=== PATIENT | female | born 1995 | race Caucasian/White ===

== ENCOUNTER 2017-02-14 00:15 | Emergency (ER) | payer OTHER, BC ==
[2017-02-14] MEDS ORDERED: Ondansetron 4 MG/2 ML SDV IVPUSH ONE (00:24)
[2017-02-14] MEDS ORDERED: Pantoprazole 40 MG Vial IVPUSH ONE (00:24)
[2017-02-14] MEDS ORDERED: Sodium Chloride 0.9% 1,000 ML IV ONE ×2 (00:24→02:21)
[2017-02-14] MEDS ORDERED: Metoclopramide 10 MG/2 ML SDV IVPUSH ONE (00:34)
--- NOTE | 2017-02-14 02:57 | EDM.PDOC ---
ED HPI GENERAL MEDICAL PROBLEM - General Chief Complaint: General Stated Complaint: VOMITTING Time Seen by Provider: 02/14/17 00:20 Source of Information: Reports: Patient, Family History Limitations: Reports: No Limitations - History of Present Illness INITIAL COMMENTS - FREE TEXT/NARRATIVE: 21 years old w f came to the ed due to sudden onset of N/V then Diarrhea. Pt denied foot poisoning. She vomitted 20 times or more. took Zofran BUSINESS OFFICE REPRESENTATIVE without help, denied . She denied any other acute medical issues. BP 126/67 pulse 112 Onset: Today Onset Date: 02/13/17 Onset Time: 16:00 Duration: Hour(s):, Intermittent Location: Reports: Abdomen (epigastric) Quality: Reports: Burning Severity: Moderate Improves with: Reports: None Worsens with: Reports: None Associated Symptoms: Reports: Nausea/Vomiting Treatments BUSINESS OFFICE REPRESENTATIVE: Reports: Other Medication(s) (Zofran) - Related Data Allergies Allergy/AdvReac Type Severity Reaction Status Date / Time Jermaine. Allergy Hives Uncoded 02/14/17 00:46 Home Meds: Home Meds Famotidine [Pepcid] 40 mg PO DAILY #10 tablet 02/14/17 [Rx] Past Medical History - Past Health History Medical/Surgical History: Denies Medical/Surgical History Social & Family History - Tobacco Use Smoking Status *Q: Never Smoker Second Hand Smoke Exposure: No - Caffeine Use Caffeine Use: Reports: Coffee Caffeine Use Comment: Mountain Dew - Recreational Drug Use Recreational Drug Use: No ED ROS GENERAL - Review of Systems Review Of Systems: See Below Constitutional: Reports: No Symptoms HEENT: Reports: No Symptoms Respiratory: Reports: No Symptoms Cardiovascular: Reports: No Symptoms Endocrine: Reports: No Symptoms GI/Abdominal: Reports: Diarrhea, Nausea, Vomiting : Reports: No Symptoms Musculoskeletal: Reports: No Symptoms Skin: Reports: No Symptoms Neurological: Reports: No Symptoms Psychiatric: Reports: No Symptoms Hematologic/Lymphatic: Reports: No Symptoms Immunologic: Reports: No Symptoms ED EXAM, GENERAL - Physical Exam Exam: See Below Exam Limited By: No Limitations General Appearance: Alert, WD/WN, Moderate Distress, Thin Eye Exam: Bilateral Eye: Normal Inspection Ears: Normal External Exam Ear Exam: Bilateral Ear: Auricle Normal Nose: Normal Inspection, Normal Mucosa Throat/Mouth: Normal Inspection, Normal Lips, Normal Teeth Head: Atraumatic, Normocephalic Neck: Normal Inspection, Supple, Non-Tender Respiratory/Chest: No Respiratory Distress, Lungs Clear Cardiovascular: Normal Peripheral Pulses, Regular Rate, Rhythm Peripheral Pulses: 1+: Femoral (L), Femoral (R) GI/Abdominal: Normal Bowel Sounds, Tender (epigastric area ) (Female) Exam: Deferred Rectal (Female) Exam: Deferred Back Exam: Normal Inspection Extremities: Normal Inspection Neurological: Alert, Oriented, CN II-XII Intact, Normal Cognition, Normal Gait Psychiatric: Normal Affect, Normal Mood Skin Exam: Warm, Dry, Intact, Normal Color, No Rash Lymphatic: No Adenopathy Course - Vital Signs Text/Narrative:: 21 years old w f came to the ed due to sudden onset of N/V then Diarrhea. Pt denied foot poisoning. She vomited 20 times or more. took Zofran BUSINESS OFFICE REPRESENTATIVE without help, denied . C/O mild bilat back pain. She denied any other acute medical issues. BP 126/67 pulse 112 PE: N/V epigastic and back pain Labs: WBC 15k BUN 16 Cr 0.6 UA SG 1.020 UPT was neg. Impression: Gastroenteritis, Dehydration, back pain Tx: NS,Reglan, Protonix Reexam: Pt felt 90% better, back pain subsided spontaneously Plan: D/C with instructions Last Recorded V/S: Last Vital Signs Temp 37.0 C 02/14/17 03:35 Pulse 68 02/14/17 03:35 Resp 20 02/14/17 03:35 BP 124/62 02/14/17 03:35 Pulse Ox 98 02/14/17 03:35 - Orders/Labs/Meds Labs: Laboratory Tests 02/14/17 02/14/17 02/14/17 Range/Units 00:37 00:37 02:20 WBC 15.4 H (4.5-12.0) X10-3/uL RBC 4.00 (3.23-5.20) x10(6)uL Hgb 12.5 (11.5-15.5) g/dL Hct 36.6 (30.0-51.3) % MCV 91.5 (80-96) fL MCH 31.2 (27.7-33.6) pg MCHC 34.1 (32.2-35.4) g/dL RDW 12.2 (11.5-15.5) % Plt Count 252 (125-369) X10(3)uL MPV 8.8 (7.4-10.4) fL Add Manual Diff Yes Neutrophils % (Manual) 79 (46-82) % Band Neutrophils % 4 (0-6) % Lymphocytes % (Manual) 13 (13-37) % Atypical Lymphs % (0-0) % Monocytes % (Manual) 4 (4-12) % Sodium 135 (135-145) mmol/L Potassium 3.6 (3.5-5.3) mmol/L Chloride 105 (100-110) mmol/L Carbon Dioxide 22 L (23-29) mmol/L BUN 16 (5-20) mg/dL Creatinine 0.6 (0.6-1.3) mg/dL Est Cr Clr Drug Dosing 120.08 mL/min Estimated GFR (MDRD) > 60 (>60) BUN/Creatinine Ratio 26.7 H (9-20) Glucose 115 (80-116) mg/dL Calcium 8.9 (8.6-10.2) mg/dL Total Bilirubin 1.2 (0.1-1.3) mg/dL Direct Bilirubin 0.2 (0.1-0.2) mg/dL AST 19 (5-27) IU/L ALT 13 L (14-26) IU/L Alkaline Phosphatase 36 L (56-112) IU/L Total Protein 7.2 (6.0-8.0) g/dL Albumin 4.4 (3.5-5.2) g/dL Amylase 72 (28-100) U/L Urine Color (YELLOW) Urine Appearance (CLEAR) Urine pH (5.0-6.5) Ur Specific Steele (1.010-1.025) Urine Protein (NEGATIVE) mg/dL Urine Glucose (UA) (NEGATIVE) mg/dL Urine Ketones (NEGATIVE) mg/dL Urine Occult Blood (NEGATIVE) Urine Nitrite (NEGATIVE) Urine Bilirubin (NEGATIVE) Urine Urobilinogen (NEGATIVE) mg/dL Ur Leukocyte Esterase (NEGATIVE) Urine RBC (0) Urine WBC (0) Ur Squamous Epith Cells (NS,R,O) Urine Bacteria (NS) Urine Mucus (NS) Urine HCG, Qual (NEGATIVE) 02/14/17 02/14/17 Range/Units 02:20 02:20 WBC (4.5-12.0) X10-3/uL RBC (3.23-5.20) x10(6)uL Hgb (11.5-15.5) g/dL Hct (30.0-51.3) % MCV (80-96) fL MCH (27.7-33.6) pg MCHC (32.2-35.4) g/dL RDW (11.5-15.5) % Plt Count (125-369) X10(3)uL MPV (7.4-10.4) fL Add Manual Diff Neutrophils % (Manual) (46-82) % Band Neutrophils % (0-6) % Lymphocytes % (Manual) (13-37) % Atypical Lymphs % (0-0) % Monocytes % (Manual) (4-12) % Sodium (135-145) mmol/L Potassium (3.5-5.3) mmol/L Chloride (100-110) mmol/L Carbon Dioxide (23-29) mmol/L BUN (5-20) mg/dL Creatinine (0.6-1.3) mg/dL Est Cr Clr Drug Dosing mL/min Estimated GFR (MDRD) (>60) BUN/Creatinine Ratio (9-20) Glucose (80-116) mg/dL Calcium (8.6-10.2) mg/dL Total Bilirubin (0.1-1.3) mg/dL Direct Bilirubin (0.1-0.2) mg/dL AST (5-27) IU/L ALT (14-26) IU/L Alkaline Phosphatase (56-112) IU/L Total Protein (6.0-8.0) g/dL Albumin (3.5-5.2) g/dL Amylase (28-100) U/L Urine Color Yellow (YELLOW) Urine Appearance Slightly cloudy (CLEAR) Urine pH 6.0 (5.0-6.5) Ur Specific [place] 1.020 (1.010-1.025) Urine Protein Negative (NEGATIVE) mg/dL Urine Glucose (UA) Normal (NEGATIVE) mg/dL Urine Ketones 15 H (NEGATIVE) mg/dL Urine Occult Blood Negative (NEGATIVE) Urine Nitrite Negative (NEGATIVE) Urine Bilirubin Moderate H (NEGATIVE) Urine Urobilinogen 1 H (NEGATIVE) mg/dL Ur Leukocyte Esterase Negative (NEGATIVE) Urine RBC 0-5 (0) Urine WBC 0-5 (0) Ur Squamous Epith Cells Few H (NS,R,O) Urine Bacteria Few H (NS) Urine Mucus Few H (NS) Urine HCG, Qual Negative (NEGATIVE) Meds: Medications Discontinued Medications Generic Name Dose Route Start Last Admin Trade Name Shauna PRN Reason Stop Dose Admin Sodium Chloride 1,000 mls @ 999 mls/hr 02/14/17 00:24 02/14/17 01:19 Normal Saline IV 02/14/17 01:24 999 mls/hr .BOLUS ONE Administration Sodium Chloride 1,000 mls @ 999 mls/hr 02/14/17 02:21 02/14/17 02:30 Normal Saline IV 02/14/17 03:21 999 mls/hr .BOLUS ONE Administration Metoclopramide HCl 10 mg 02/14/17 00:34 02/14/17 01:19 Reglan IVPUSH 02/14/17 00:35 10 mg ONETIME ONE Administration Ondansetron HCl 8 mg 02/14/17 00:24 Zofran IVPUSH 02/14/17 00:25 ONETIME ONE Pantoprazole Sodium 40 mg 02/14/17 00:24 02/14/17 01:19 Protonix Iv IVPUSH 02/14/17 00:25 40 mg ONETIME ONE Administration Departure - Departure Time of Disposition: 02:51 Disposition: Home, Self-Care 01 Condition: good Clinical Impression: Dehydration, Gastroenteritis Gastritis Qualifiers: Gastritis type: unspecified gastritis Chronicity: acute Gastritis bleeding: without bleeding Qualified Code(s): K29.00 - Acute gastritis without bleeding - Discharge Information Prescriptions: Famotidine [Pepcid] 40 mg PO DAILY #10 tablet Referrals: PCP,Not In Area [Primary Care Provider] - Forms: ED Department Discharge Additional Instructions: Please take pepcid as recommended, please take zofran for nausea, please eat potassium containing food, please f/u, come back to the ed if your symptoms get acutely worse. Advance diet as tolerated.
[2017-02-14 03:36] VITALS: BP 124/62
== END 2017-02-14 03:36 | disposition home or self-care (01) ==
LOC: FB.ED 00:15
DX: E86.0 Dehydration (principal); K29.00 Acute gastritis without bleeding; K52.9 Noninfective gastroenteritis and colitis, unspecified; Z79.899 Other long term (current) drug therapy
CPT/HCPCS: 36415; 80048; 80076; 81001; 81025; 82150; 85025; 96361; 96374; 96375; 99284; C9113; J2765; J7040

== ENCOUNTER 2019-04-08 15:18 | Emergency (ER) | payer BC ==
--- NOTE | 2019-04-08 15:22 | EDM.PDOC ---
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 Last NMP (?), No Trauma. No Blood in her urine, n H/O Kidney stone. no prev abdominal surgeries. pain radiates to her R flank. No N/V/D, No CP. NO SOB. No other acute med issues. BP 107/70 RR 18 Pulse ox 100% on RA Pulse 82 Temp 36.6 Onset Date: 04/08/19 Onset Time: 10:00 Duration: Hour(s): Location: Reports: Abdomen Quality: Reports: Ache, Burning, Dull, Pressure, Stabbing, Throbbing Severity: Moderate Improves with: Reports: None Worsens with: Reports: None Context: Reports: Other Associated Symptoms: Reports: No Other Symptoms Right Lower Abdomen Pain Score (Numeric/FACES): 2 - Related Data Allergies Allergy/AdvReac Type Severity Reaction Status Date / Time Jermaine. Allergy Hives Uncoded 02/14/17 00:46 Home Meds: Home Meds Acetaminophen/oxyCODONE [Percocet 325-5 MG] 1 each PO Q6HR PRN #6 tab 04/08/19 [ Rx] Past Medical History - Past Health History Medical/Surgical History: Denies Medical/Surgical History Social & Family History - Caffeine Use Caffeine Use: Reports: Coffee Caffeine Use Comment: Yulia Ontiveros ED ROS GENERAL - Review of Systems Review Of Systems: See Below Constitutional: Reports: No Symptoms HEENT: Reports: No Symptoms Respiratory: Reports: No Symptoms Cardiovascular: Reports: No Symptoms Endocrine: Reports: No Symptoms GI/Abdominal: Reports: No Symptoms : Reports: No Symptoms ED EXAM, GI/ABD - Physical Exam Exam: See Below Exam Limited By: No Limitations General Appearance: Alert, WD/WN, Moderate Distress Eyes: Bilateral: Normal Appearance Ears: Normal External Exam Nose: Normal Inspection Throat/Mouth: Normal Inspection, Normal Lips, Normal Voice, No Airway Compromise Head: Atraumatic, Normocephalic Neck: Normal Inspection, Supple, Non-Tender, Full Range of Motion Respiratory/Chest: No Respiratory Distress, Lungs Clear, Normal Breath Sounds, No Accessory Muscle Use Cardiovascular: Normal Peripheral Pulses GI/Abdominal Exam: Tender (generalized, more so at her RLQ of her abd.), Abnormal Bowel Sounds (Female) Exam: Deferred Rectal (Female) Exam: Deferred Back Exam: Normal Inspection, Full Range of Motion Extremities: Normal Inspection, Normal Range of Motion Neurological: Alert, Oriented, CN II-XII Intact, Normal Cognition, No Motor/ Sensory Deficits Psychiatric: Anxious, Tearful Skin Exam: Warm, Dry, Intact, Normal Color, No Rash Lymphatic: No Adenopathy Course - Vital Signs Text/Narrative:: 23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 Last NMP (?), No Trauma. No Blood in her urine, n H/O Kidney stone. no prev abdominal surgeries. pain radiates to her R flank. No N/V/D, No CP. NO SOB. No other acute med issues. BP 107/70 RR 18 Pulse ox 100% on RA Pulse 82 Temp 36.6 PE: Thin 23 y.o.w.f with excruciating abd. pain Labs: CBC, BMP, UA and HCG were neg. Her K was 3.2, however. Imaging: US pelvis: Right side: [address] abd/pelvis: Urolithiasis 1 mm stone right UVJ with mild Hydronephrosis, Dilatation of intrahepatic ducts, Nl appendix. US RUQ recommended. Impression: right Ovarian cyst, Urolithiasis right UVJ with mild hydronephrosis , dilated intrahepatic ducts, Hypokalemia Tx: Toradol, NS, Dilaudid, Morphine and Percocet Reexam: Pain improved to 4/10 and the pt felt comfortable to be D/C'd with family Plan: D/C with Family with instructions Addendum: Pt's BP was 90/50 on D/C, which i was notified after D/C. I called the pt at home, asking her to encourage water intake. F/U call 04/09/2019: No answer. Left Message Last Recorded V/S: Last Vital Signs Temp 36.8 C 04/08/19 15:18 Pulse 55 L 04/08/19 21:36 Resp 18 04/08/19 21:36 BP 90/72 04/08/19 21:36 Pulse Ox 100 04/08/19 21:36 - Orders/Labs/Meds Orders: Active Orders 24 hr Category Date Time Status Abdomen Pelvis w Cont [CT] Stat Exams 04/08/19 17:39 Taken Pelvis Non OB Ltd [US] Stat Exams 04/08/19 17:01 Taken Transvaginal Non OB [US] Stat Exams 04/08/19 17:01 Taken Labs: Laboratory Tests 04/08/19 04/08/19 04/08/19 Range/Units 15:32 15:32 15:32 WBC 6.9 (4.5-12.0) X10-3/uL RBC 4.19 (3.23-5.20) x10(6)uL Hgb 13.1 (11.5-15.5) g/dL Hct 38.5 (30.0-51.3) % MCV 91.9 (80-96) fL MCH 31.3 (27.7-33.6) pg MCHC 34.1 (32.2-35.4) g/dL RDW 12.0 (11.5-15.5) % Plt Count 306 (125-369) X10(3)uL MPV 9.0 (7.4-10.4) fL Neut % (Auto) 57.3 (46-82) % Lymph % (Auto) 34.4 (13-37) % [place] % (Auto) 6.8 (4-12) % Eos % (Auto) 1 (1.0-5.0) % Baso % (Auto) 1 (0-2) % Neut # (Auto) 3.9 (1.6-8.3) # Lymph # (Auto) 2.4 (0.6-5.0) # [place] # (Auto) 0.5 (0.0-1.3) # Eos # (Auto) 0.1 (0.0-0.8) # Baso # (Auto) 0.0 (0.0-0.2) # Sodium 141 (135-145) mmol/L Potassium 3.2 L (3.5-5.3) mmol/L Chloride 104 (100-110) mmol/L Carbon Dioxide 22 (21-32) mmol/L BUN 10 (7-18) mg/dL Creatinine 0.9 (0.55-1.02) mg/dL Est Cr Clr Drug Dosing TNP Estimated GFR (MDRD) > 60 (>60) BUN/Creatinine Ratio 11.1 (9-20) Glucose 127 H (80-116) mg/dL Calcium 9.5 (8.6-10.2) mg/dL Total Bilirubin 0.6 (0.1-1.3) mg/dL Direct Bilirubin 0.17 (0.10-0.20) mg/dL AST 14 (5-25) IU/L ALT 18 (12-36) U/L Alkaline Phosphatase 49 L (56-112) IU/L Total Protein 7.9 (6.0-8.0) g/dL Albumin 4.7 (3.5-5.2) g/dL Amylase 52 (25-115) U/L HCG, Quant (<5) mIU/mL Urine Color (YELLOW) Urine Appearance (CLEAR) Urine pH (5.0-6.5) Ur Specific [place] (1.010-1.025) Urine Protein (NEGATIVE) mg/dL Urine Glucose (UA) (NORMAL) mg/dL Urine Ketones (NEGATIVE) mg/dL Urine Occult Blood (NEGATIVE) Urine Nitrite (NEGATIVE) Urine Bilirubin (NEGATIVE) Urine Urobilinogen (NEGATIVE) mg/dL Ur Leukocyte Esterase (NEGATIVE) Urine RBC (0-5) Urine WBC (0-5) Ur Squamous Epith Cells (NS,R,O) Urine Bacteria (NS) Urine Mucus (NS) 04/08/19 04/08/19 Range/Units 15:53 16:35 WBC (4.5-12.0) X10-3/uL RBC (3.23-5.20) x10(6)uL Hgb (11.5-15.5) g/dL Hct (30.0-51.3) % MCV (80-96) fL MCH (27.7-33.6) pg MCHC (32.2-35.4) g/dL RDW (11.5-15.5) % Plt Count (125-369) X10(3)uL MPV (7.4-10.4) fL Neut % (Auto) (46-82) % Lymph % (Auto) (13-37) % [place] % (Auto) (4-12) % Eos % (Auto) (1.0-5.0) % Baso % (Auto) (0-2) % Neut # (Auto) (1.6-8.3) # Lymph # (Auto) (0.6-5.0) # [place] # (Auto) (0.0-1.3) # Eos # (Auto) (0.0-0.8) # Baso # (Auto) (0.0-0.2) # Sodium (135-145) mmol/L Potassium (3.5-5.3) mmol/L Chloride (100-110) mmol/L Carbon Dioxide (21-32) mmol/L BUN (7-18) mg/dL Creatinine (0.55-1.02) mg/dL Est Cr Clr Drug Dosing Estimated GFR (MDRD) (>60) BUN/Creatinine Ratio (9-20) Glucose (80-116) mg/dL Calcium (8.6-10.2) mg/dL Total Bilirubin (0.1-1.3) mg/dL Direct Bilirubin (0.10-0.20) mg/dL AST (5-25) IU/L ALT (12-36) U/L Alkaline Phosphatase (56-112) IU/L Total Protein (6.0-8.0) g/dL Albumin (3.5-5.2) g/dL Amylase (25-115) U/L HCG, Quant < 5 L (<5) mIU/mL Urine Color Yellow (YELLOW) Urine Appearance Clear (CLEAR) Urine pH 9.0 H (5.0-6.5) Ur Specific [place] 1.015 (1.010-1.025) Urine Protein Negative (NEGATIVE) mg/dL Urine Glucose (UA) Normal (NORMAL) mg/dL Urine Ketones 15 H (NEGATIVE) mg/dL Urine Occult Blood Negative (NEGATIVE) Urine Nitrite Negative (NEGATIVE) Urine Bilirubin Negative (NEGATIVE) Urine Urobilinogen Normal (NEGATIVE) mg/dL Ur Leukocyte Esterase Negative (NEGATIVE) Urine RBC 0-5 (0-5) Urine WBC 0-5 (0-5) Ur Squamous Epith Cells Few H (NS,R,O) Urine Bacteria Few H (NS) Urine Mucus Few H (NS) Meds: Medications Discontinued Medications Generic Name Dose Route Start Last Admin Trade Name Shauna PRN Reason Stop Dose Admin Hydromorphone HCl 0.5 mg 04/08/19 15:42 04/08/19 16:22 Dilaudid IVPUSH 04/08/19 15:43 0.5 mg ONETIME ONE Administration Hydromorphone HCl 0.5 mg 04/08/19 17:29 04/08/19 17:35 Dilaudid IVPUSH 04/08/19 17:30 0.5 mg ONETIME ONE Administration Hydromorphone HCl 0.5 mg 04/08/19 18:33 04/08/19 18:43 Dilaudid IVPUSH 04/08/19 18:34 0.5 mg ONETIME ONE Administration Sodium Chloride 1,000 mls @ 999 mls/hr 04/08/19 15:41 04/08/19 15:45 Normal Saline IV 04/08/19 16:41 999 mls/hr .BOLUS ONE Administration Iopamidol 65 ml 04/08/19 18:12 04/08/19 18:30 Isovue-370 (76%) IV 04/08/19 18:13 65 ml ONETIME ONE Administration Ketorolac Tromethamine 30 mg 04/08/19 15:24 04/08/19 15:35 Toradol IVPUSH 04/08/19 15:25 30 mg ONETIME ONE Administration Morphine Sulfate 2 mg 04/08/19 19:30 04/08/19 19:48 Morphine IVPUSH 04/08/19 19:31 2 mg ONETIME ONE Administration Oxycodone/Acetaminophen 1 tab 04/08/19 21:23 04/08/19 21:34 Percocet 325-5 Mg PO 04/08/19 21:24 1 tab ONETIME STA Administration Oxycodone/Acetaminophen 1 tab 04/08/19 21:42 04/08/19 21:52 Percocet 325-5 Mg PO 04/08/19 21:43 1 tab ONETIME STA Administration Tamsulosin HCl 0.4 mg 04/08/19 19:45 04/08/19 19:48 Flomax PO 04/08/19 19:46 0.4 mg ONETIME ONE Administration Departure - Departure Time of Disposition: 21:14 Disposition: Home, Self-Care 01 Condition: Good Clinical Impression: Kidney stone on right side Ovarian cyst Qualifiers: Laterality: right Qualified Code(s): N83.201 - Unspecified ovarian cyst, right side - Discharge Information Prescriptions: Acetaminophen/oxyCODONE [Percocet 325-5 MG] 1 each PO Q6HR PRN #6 tab PRN Reason: for severe pain anly Instructions: Kidney Stones, Acetaminophen; Oxycodone tablets, Ovarian Cyst, [id number], Tamsulosin capsules Referrals: PCP,None [Primary Care Provider] - Forms: ED Department Discharge Additional Instructions: Please increase water intake, please take Motrin for moderate pain, Percocet for severe pain. Please f/u with your primary MD and GI specialist to evaluate hepatic duct system. Please come back if your symptoms get worse acutely. Please increase water intake. - My Orders Last 24 Hours: My Active Orders 04/08/19 17:01 Pelvis Non OB Ltd [US] Stat Transvaginal Non OB [US] Stat 04/08/19 17:39 Abdomen Pelvis w Cont [CT] Stat - Assessment/Plan Last 24 Hours: My Active Orders 04/08/19 17:01 Pelvis Non OB Ltd [US] Stat Transvaginal Non OB [US] Stat 04/08/19 17:39 Abdomen Pelvis w Cont [CT] Stat
[2019-04-08] MEDS ORDERED: Ketorolac 30 MG/ML SDV IVPUSH ONE (15:24)
[2019-04-08] MEDS ORDERED: Sodium Chloride 0.9% 1,000 ML IV ONE (15:41)
[2019-04-08] MEDS ORDERED: HYDROmorphone 2 MG/ML SDV IVPUSH ONE ×3 (15:42→18:33)
[2019-04-08] MEDS ORDERED: Iopamidol 755 Mg/ML 75 ML Bottle IV ONE (18:12)
[2019-04-08] MEDS ORDERED: Morphine 2 MG/ML Syringe IVPUSH ONE (19:30)
[2019-04-08] MEDS ORDERED: Tamsulosin 0.4 MG Cap.ER PO ONE (19:45)
[2019-04-08] MEDS ORDERED: Acetaminophen/oxyCODONE 325-5 MG Tab PO STA ×2 (21:23→21:42)
[2019-04-08 23:01] VITALS: BP 90/72; PULSE 55
== END 2019-04-08 21:54 | disposition home or self-care (01) ==
LOC: FB.ED 15:18
DX: N13.2 Hydronephrosis with renal and ureteral calculous obstruction (principal); N83.201 Unspecified ovarian cyst, right side; Z97.5 Presence of (intrauterine) contraceptive device
CPT/HCPCS: 36415; 74177; 76830; 76857; 80048; 80076; 81001; 82150; 84702; 85025; 96361; 96374; 96375; 96376; 99284; A9270; J1170; J1885; J2270; J7030; Q9967